=== PATIENT | female | born 1935 | race Caucasian/White ===

== ENCOUNTER 2022-04-15 17:39 | Emergency (ER) | payer MEDICARE, SELFPAY ==
[2022-04-15 17:45] VITALS: BP 176/72; PULSE 80; RESP 17; TEMP 36; O2SAT 99; BMI 16.5
--- NOTE | 2022-04-15 18:36 | CT_ITS ---
STUDY: CT Abdomen And Pelvis W/O Contrast Injection 04/15/2022 8:23 PM REASON FOR EXAM: Female, 86 years old. Abdominal pain Pain Individualized dose optimization techniques were used for this CT. COMPARISON: None. TECHNIQUE: CT Abdomen And Pelvis W/O Contrast Injection FINDINGS: There are atherosclerotic calcifications of visualized coronary arteries. The visualized portions of the heart are within normal limits. Normal liver. Normal gallbladder and extrahepatic biliary system. Normal spleen. Normal pancreas. Normal bilateral adrenal glands. 23 mm suspicious slightly hyperdense lesion of the superior right kidney. Series 2 image 39. No acute findings of the left kidney. There is a small hiatal hernia. Normal small intestine. Stool throughout the colon. There is non-visualization of the appendix. There are calcifications of the abdominal aorta. This is consistent for atherosclerotic disease. There is 28mm abdominal aortic aneurysm. Vascular workup can be obtained based on clinical correlation. Normal inferior vena cava. Subcentimeter mesenteric lymph nodes. Normal urinary bladder. There is absence of the uterus consistent with a prior hysterectomy. There is an umbilical hernia containing fat. There are diffuse degenerative changes of the visualized lumbar spine. Degenerative findings of the hips. CT/Abdomen/Pelvis without Cont IMPRESSION: (NOT LISTED IN ORDER OF SIGNIFICANCE) 23 mm suspicious slightly hyperdense lesion of the superior right kidney. ACR White Paper guidelines (Herconstantine, et al. JACR 2018; 15(2):264-273) recommend MRI or CT without and with intravenous contrast. 28mm abdominal aortic aneurysm. Other findings as above. Electronically Signed: Nir Ho MD at 20:26 EDT ,
--- NOTE | 2022-04-15 18:38 | EX.ED.DYSGE1 ---
HPI History of Present Illness Chief Complaint: General Illness Informant: patient and family Narrative Narrative: Patient presents with diarrhea going on since about 16 March. She cannot think of anything that started this. There are no medication changes. Nothing [id number]. She states she really does not have abdominal pain. She sometimes gets an upset stomach. But denies ever having nausea vomiting. She has watery stools. No travels. No recent antibiotics. She did see her primary physician that evidently sent off stool studies and blood work and said there is no sign of infections or cancers or any other abnormalities. She has an appointment with gastroenterology in May. She was brought in today because her niece feels that this needs to get solved. She has lost 18 pounds since about the seventh or eighth of this month. No fevers or chills. Nothing makes this better. Anything she eats or drinks just goes through her though. Surgeries are hysterectomy with concomitant appendectomy and 2 prior cardiac stents. Of note, patient does not want any medications. She does not want any contrast for studies because she states almost all medications cause her to break out in a significant rash. [facility] Medical History HTN (hypertension) Hx of hiatal hernia Home Medications calcium carbonate 500 mg-vitamin D3 5 mcg (200 unit) tablet (Os-Kevin 500 + D3) 1 tab PO BID 04/15/22 [History Last Taken Unknown] cilostazol 50 mg tablet 50 mg PO BID 04/15/22 [History Last Taken Unknown] clopidogrel 75 mg PO.IVFORM DAILY 04/15/22 [History Last Taken Unknown] dorzolamide-timolol 1 drp EACH EYE DAILY 04/15/22 [History Last Taken Unknown] metoprolol succinate 200 mg PO.IVFORM DAILY 04/15/22 [History Last Taken Unknown] Allergy/AdvReac Type Severity Reaction Status Date / Time acetaminophen AdvReac Rash Verified 04/15/22 17:44 aspirin [ASA] AdvReac Rash Verified 04/15/22 17:44 Cephalosporins AdvReac Rash Verified 04/15/22 17:44 diphenoxylate AdvReac Rash Verified 04/15/22 17:44 doxycycline AdvReac Rash Verified 04/15/22 17:44 famotidine [From Pepcid] AdvReac Rash Verified 04/15/22 17:44 Iodinated Contrast Media [CT] AdvReac PT UNSURE Verified 04/15/22 17:44 OF REACTION oxycodone AdvReac Rash Verified 04/15/22 17:44 Penicillins AdvReac Rash Verified 04/15/22 17:44 pravastatin AdvReac Rash Verified 04/15/22 17:44 Sulfa (Sulfonamide AdvReac Rash Verified 04/15/22 17:44 Antibiotics) Social History Smoking Status: Never smoker ROS ROS ED Constitutional Constitutional ED: Denies chills or fever(s) Eyes Eyes: Denies change in vision ENT ENT ED: Denies rhinorrhea or sore throat Cardiovascular Cardiovascular: Denies chest pain, palpitations or racing heartbeat Respiratory/Chest Respiratory/Chest: Denies cough or dyspnea Gastrointestinal Gastrointestinal: Reports diarrhea; Denies abdominal pain, constipation, melena, nausea or vomiting Genitourinary Genitourinary ED: Denies dysuria, hematuria or urinary frequency Musculoskeletal Musculoskeletal: Denies myalgias Neurologic Neurologic: Denies headache(s), paresthesias or weakness Psychiatric Psychiatric: Denies anxiety Endocrine Endocrinology: Denies polydipsia or polyuria Hematologic/Lymphatic Hematologic/Lymphatic: Denies lymphadenopathy Allergic/Immunologic Allergic/Immunologic ED: Denies urticaria EXAM Physical Exam Const Vital Signs: 04/15/22 17:45 04/15/22 18:23 04/15/22 20:21 Temperature 96.8 F L Temperature Source Temporal Pulse Rate 80 Respiratory Rate 17 Respiratory Effort Normal Non-Labored Respiratory Pattern Normal Blood Pressure 176/72 H 131/67 H Blood Pressure Mean 106 88 Pulse Ox 99 Oxygen Delivery Method Room Air Positive well nourished and well developed General Appearance ED: well developed and NAD; Negative for cyanotic, diaphoretic or pallor HEENT Reports moist mucous membranes Eyes EOMs intact bilaterally General Eye ED: Negative for scleral icterus Neck no lymphadenopathy Chest Wall inspection of chest normal Resp normal respiratory effort and clear to auscultation bilaterally Cardio regular rate and regular rhythm GI normal to inspection, nondistended, normoactive bowel sounds, non-tender, non-distended and no masses; Negative for hepatosplenomegaly Auscultation: normoactive bowel sounds Back/Spine no CVA tenderness Neuro Sensorium / Orientation: alert Psych mental status grossly normal Skin no rashes or lesions noted General Skin Exam: Negative for jaundice or pallor MDM MDM MDM Narrative Medical decision making narrative: Patient CBC just shows minimal anemia. Electrolytes and liver function test all look good other than mildly decreased potassium that is consistent with diarrhea. Lactate is negative. Urine shows 10-20 white cells but the urine is clear and negative nitrites. There is some increased leukocyte Estrace. But it is also not a clean-catch with multiple epithelial cells. Patient has no urinary symptoms whatsoever. I will send this for culture but will not acutely treat with antibiotics because of her primary complaint that this could worsen. We discussed options. Patient would like to go home. I think this is reasonable. She is eating and drinking. We discussed trying some Pepto-Bismol or Kaopectate. If she develops fevers pains or other concerns she should return. We also discussed the finding of the possible mass on the kidney. She states she does have prior studies that showed 2 different spots on the kidney. She states one was a cyst and one was different. I do not have the studies. I recommend she follow-up with her family doctor. This does need to be followed. If she has prior studies that show unchanged that may be enough but she may need further imaging and/or biopsy. Even if this is a cancer or tumor, that does not explain fully the diarrhea that she is having. But this needs to be followed up. She will contact her primary physician. I will refer her to Dr. Patel in gastroenterology because of the duration of her symptoms. Lab Data Attestation: I reviewed the patient's lab results. Labs: Laboratory Results - last 24 hr 04/15/22 04/15/22 04/15/22 19:03 19:05 19:05 WBC 7.7 RBC 4.11 L Hgb 11.5 L Hct 37.8 MCV 92.0 MCH 28.0 MCHC 30.4 L RDW Std Deviation 49.2 H RDW Coeff of Nicanor 14.6 Plt Count 317 MPV 10.3 Immature Gran % (Auto) 0.300 Neut % (Auto) 61.6 Lymph % (Auto) 25.7 [place] % (Auto) 8.9 Eos % (Auto) 3.1 Baso % (Auto) 0.4 Absolute Neuts (auto) 4.7 Absolute Lymphs (auto) 1.97 Nucleated RBC % 0 Sodium 138 Potassium 3.3 L Chloride 103 Carbon Dioxide 30.0 Anion Gap 5 BUN 10 Creatinine 0.98 Estim Creat Clear Calc 27.05 Est GFR (MDRD) Af Amer 69 Est GFR (MDRD) Non-Af 57 L BUN/Creatinine Ratio 10.2 Glucose 98 Lactic Acid Calcium 9.4 Total Bilirubin 0.50 AST 16 ALT 13 Alkaline Phosphatase 86 Total Protein 8.4 H Albumin 3.4 Globulin 5.0 H Albumin/Globulin Ratio 0.7 L Lipase 328 Urine Color Yellow Urine Clarity Clear Urine pH 6.5 Ur Specific [place] 1.015 Urine Protein 15 H Urine Glucose (UA) Normal Urine Ketones Negative Urine Occult Blood 25 H Urine Nitrite Negative Urine Bilirubin Negative Urine Urobilinogen Normal Ur Leukocyte Esterase 500 H Urine RBC 0-5 SEEN Urine WBC 10-25 SEEN Ur Squamous Epith Cells 10-25 SEEN Urine Bacteria 1+ Hyaline Casts 0-5 SEEN Urine Mucus 3+ 04/15/22 19:05 WBC RBC Hgb Hct MCV MCH MCHC RDW Std Deviation RDW Coeff of Nicanor Plt Count MPV Immature Gran % (Auto) Neut % (Auto) Lymph % (Auto) [place] % (Auto) Eos % (Auto) Baso % (Auto) Absolute Neuts (auto) Absolute Lymphs (auto) Nucleated RBC % Sodium Potassium Chloride Carbon Dioxide Anion Gap BUN Creatinine Estim Creat Clear Calc Est GFR (MDRD) Af Amer Est GFR (MDRD) Non-Af BUN/Creatinine Ratio Glucose Lactic Acid 1.0 Calcium Total Bilirubin AST ALT Alkaline Phosphatase Total Protein Albumin Globulin Albumin/Globulin Ratio Lipase Urine Color Urine Clarity Urine pH Ur Specific [place] Urine Protein Urine Glucose (UA) Urine Ketones Urine Occult Blood Urine Nitrite Urine Bilirubin Urine Urobilinogen Ur Leukocyte Esterase Urine RBC Urine WBC Ur Squamous Epith Cells Urine Bacteria Hyaline Casts Urine Mucus Radiography Diagnostic Testing: Clinical Impression(s) from Imaging Studies Abdomen/Pelvis CT 04/15/22 18:36 IMPRESSION: (NOT LISTED IN ORDER OF SIGNIFICANCE) 23 mm suspicious slightly hyperdense lesion of the superior right kidney. ACR White Paper guidelines (Daniel, et al. JACR 2018; 15(2):264-273) recommend MRI or CT without and with intravenous contrast. 28mm abdominal aortic aneurysm. Other findings as above. Electronically Signed: Nir Ho MD at 20:26 EDT Reading Location ID and State: [facility] / [place] , Service support , Discharge Plan Triage Chief Complaint: General Illness ED Provider: Malcolm Jade Dx/Rx/DC Orders Clinical Impression: Diarrhea, Abnormal weight loss Instructions: ED Diarrhea, Unknown Cause Prescriptions: No Action cilostazol 50 mg Tablet 50 mg PO BID calcium carbonate-vitamin D3 [Os-Kevin 500 + D3] 500 mg-5 mcg (200 unit) Tablet 1 tab PO BID clopidogrel 75 mg PO.IVFORM DAILY dorzolamide-timolol 1 drp EACH EYE DAILY metoprolol succinate 200 mg PO.IVFORM DAILY Primary Care Provider: Breanna Alexander Referrals: Breanna Alexander MD [Primary Care Provider] - As soon as possible Friend,DO Misael [Med Staff - Active Staff] - As soon as possible Activity Restrictions/Additional Instructions: Talk to your doctor about the spot on the right kidney. This will need follow-up imaging, possible biopsy, comparison with other views or images that may be in your medical record. Disposition Disposition: Home, Self Care
[2022-04-15 19:09] LABS: Color, Urine Yellow (Yellow); Glucose, Dipstick Normal (Normal); Ketone-Dipstick Negative (Negative); Leukocyte Esterase-Dipstick 500 /ul (Negative); Nitrite-Dipstick Negative (Negative); Occult Blood-Urine 25 /ul (Negative); Protein-Dipstick 15 mg/dl (Negative); Specific Gravity, Urine 1.015 (1.002-1.030); Urine Bilirubin Dipstick Negative (Negative); Urine Clarity Clear (Clear); Urine Urobilinogen Normal (Normal); Urine pH 6.5 (5.0 - 8.0)
[2022-04-15 19:13] LABS: Absolute Lymphocyte Count 1.97 X10^3/uL (0.83-4.51); Absolute Neutrophil Count 4.7 X10^3/uL (2.0-7.7); Basophil# 0.03 X10^3/uL; Basophil% 0.4 % (0-1); Eosinophil# 0.24 X10^3/uL; Eosinophils% 3.1 % (0-5); Hematocrit 37.8 % (37-47); Hemoglobin 11.5 g/dL (12.0-15.0); Lymphocyte # 1.97 X10^3/ul (0.83-4.51); Lymphocyte % 25.7 % (19-41); Mean Corp Hgb Conc 30.4 g/dL (32-36); Mean Platelet Vol. 10.3 fl (6.2-12.0); Monocyte# 0.68 X10^3/uL; Monocyte% 8.9 % (0-10); NRBC Flagged by Analyzer 0 % (0-5); Neutrophil # 4.72 X10^3/uL (2.7-7.7); Neutrophil % 61.6 % (47-70); Platelet Count 317 K/mm3 (150-450); RBC Distribution Width CV 14.6 % (11.6-14.6); RBC Distribution Width SD 49.2 fl (35.1-43.9); Red Blood Count 4.11 M/mm3 (4.2-5.4); White Blood Count 7.7 K/mm3 (4.4-11.0)
[2022-04-15 19:24] LABS: Bacteria 1+ /hpf (None Seen); Mucous, Urine 3+ /hpf (<or=2+); Red Blood Cells-Urine 0-5 SEEN /hpf (0-5); Squamous Epithelial Cells - UA 10-25 SEEN /hpf (5-10); White Blood Cells 10-25 SEEN /hpf (0-5)
[2022-04-15 19:26] LABS: Hyaline Cast 0-5 SEEN /lpf (0-5)
[2022-04-15 19:28] LABS: ALB/GLOB Ratio 0.7 RATIO (0.9-2.4); AST(SGOT) 16 U/L (15-37); Alanine Aminotransfer ALT/SGPT 13 U/L (13-56); Albumin, Serum 3.4 g/dL (3.2-5.0); Alkaline Phosphatase 86 U/L (45-117); Anion Gap 5 (5-15); BUN 10 mg/dL (7-18); BUN/Creat Ratio 10.2 RATIO (10-20); Calcium,Total 9.4 mg/dL (8.5-10.1); Chloride 103 mmol/L (98-107); Creatinine, Serum 0.98 mg/dL (0.55-1.02); EST Glomerular Filtration Rate 57 mL/min (>60); Est Glom Filt Rate - Afr Amer 69 mL/min (>60); Estimated Creatinine Clearance 27.05 ml/min; Glucose 98 mg/dL (74-106); Lipase 328 U/L (73-393); Potassium 3.3 mmol/L (3.5-5.1); Protein, Total 8.4 g/dL (6.4-8.2); Sodium Level 138 mmol/L (136-145)
[2022-04-15 20:21] VITALS: BP 131/67
[2022-04-15 21:23] VITALS: BP 158/75; PULSE 78
[2022-04-15] MEDS: Potassium Chloride Oral Tablet 20 MEQ PO (21:30)
== END 2022-04-15 21:32 | disposition home or self-care (01) ==
PROVIDERS: Emergency Provider Emergency Medicine; PCP Family Medicine; Visit Provider Emergency Medicine
DX: R19.7 Diarrhea, unspecified (principal); D64.9 Anemia, unspecified; R63.4 Abnormal weight loss; I10 Essential (primary) hypertension; Z79.899 Other long term (current) drug therapy
CPT/HCPCS: 74176; 80053; 81001; 83605; 83690; 85025; 87086; 87088; 96360; 99283; J7040; A4216